=== PATIENT | female | born 1990 | race Caucasian/White ===

== ENCOUNTER 2017-10-15 18:30 | Emergency (ER) | payer OTHER ==
[2017-10-15 18:37] VITALS: BP 113/76; PULSE 80; RESP 20; TEMP 98.6; O2SAT 100
--- NOTE | 2017-10-15 19:35 | C.PDOC ---
History Of Present Illness 27 year old female presents to the ED for evaluation of a needle stick which she sustained to her right hand from a used needle two days ago while she was at work. Patient states she squeezed and washed area right away. Pt was unable to follow up with her PMD and now presents to the ED requesting evaluation. Patient denies fever, chills, discharge. Pt has been fully immunized against Hep B. Time Seen by Provider: 10/15/17 19:19 Chief Complaint (Nursing): Needle Stick History Per: Patient History/Exam Limitations: no limitations Onset/Duration Of Symptoms: Days (2) Current Symptoms Are (Timing): Still Present Additional History Per: Patient Past Medical History Reviewed: Historical Data, Nursing Documentation, Vital Signs Vital Signs: Last Vital Signs Temp 98.6 F 10/15/17 18:35 Pulse 80 10/15/17 18:35 Resp 20 10/15/17 20:31 BP 113/76 10/15/17 18:35 Pulse Ox 100 10/15/17 21:37 - Medical History PMH: No Chronic Diseases Surgical History: No Surg Hx Family History: States: Unknown Family Hx - Social History Hx Alcohol Use: Yes Hx Substance Use: No - Immunization History Hx Tetanus Toxoid Vaccination: Yes Hx Influenza Vaccination: Yes Hx Pneumococcal Vaccination: No Review Of Systems Constitutional: Negative for: Fever, Chills Skin: Positive for: Other (needle stick to right hand ) Physical Exam - Physical Exam Appears: Non-toxic, No Acute Distress Skin: Normal Color, Warm, Dry, Other (right hand: no puncture wound noted. no open wounds noted. no erythema ) Extremity: Normal ROM, No Tenderness, Capillary Refill (less than 2 seconds ), No Swelling Pulses: Right Radial: Normal Neurological/Psych: Normal Speech, Normal Cognition, Normal Sensation ED Course And Treatment O2 Sat by Pulse Oximetry: 100 (on RA) Pulse Ox Interpretation: Normal Progress Note: HIV prophylactic treatment initiated in the ED. Tivicay PO and Truvada PO administered. On reassessment, patient is resting comfortably, showing no signs of distress and is stable for discharge. Patient is advised to follow up with her PMD within 1-2 days for further evaluation and/or return to the ED if symptoms persist or worsen. Disposition Counseled Patient/Family Regarding: Diagnosis, Need For Followup, Rx Given - Disposition Referrals: Javi Ponce MD [Medical Doctor] - Disposition: HOME/ ROUTINE Disposition Time: 19:35 Condition: STABLE Additional Instructions: Please follow up with PMD for further manamgement Return to ER if worse Prescriptions: Dolutegravir Sodium [Tivicay] 50 mg PO DAILY #20 tab Emtricitabine/Tenofovir (Tdf) [Truvada 200 mg-300 mg Tablet] 1 each PO DAILY # 20 tablet Forms: [facility] (Greenlandic), General Discharge Instructions - Clinical Impression Clinical Impression: Needle stick injury - PA / POLICY SERVICE COORDINATOR / Resident Statement MD/DO has reviewed & agrees with the documentation as recorded. - Scribe Statement The provider has reviewed the documentation as recorded by the Scribe (Liss Duenas) All medical record entries made by the Scribe were at my direction and personally dictated by me. I have reviewed the chart and agree that the record accurately reflects my personal performance of the history, physical exam, medical decision making, and the department course for this patient. I have also personally directed, reviewed, and agree with the discharge instructions and disposition.
[2017-10-15] MEDS ORDERED: Emtricitabine-Tenofovir 200 mg-300 mg Tab PO STA (19:53)
[2017-10-15] MEDS ORDERED: Emtricitabine-Tenofovir 200 mg-300 mg Tab PO NR (20:00)
== END 2017-10-15 20:31 | disposition home or self-care (01) ==
LOC: EDBD 18:30 → C.ER 18:30
DX: S69.91XA Unspecified injury of right wrist, hand and finger(s), initial encounter (principal); W46.0XXA Contact with hypodermic needle, initial encounter; Y99.0 Civilian activity done for income or pay